=== PATIENT | female | born 1960 | race Caucasian/White ===

== ENCOUNTER 2021-01-20 11:10 | Emergency (ER) | payer BC, SELFPAY ==
--- NOTE | ~2021-01-20 | XR_ITS ---
XR finger 2nd LT min 2V DATE: 01/20/2021 11:32 INDICATION: Cut finger with knife TECHNIQUE: 3 views COMPARISON: None FINDINGS: Soft tissue irregularity consistent with laceration is noted at the distal aspect of the se cond digit. No radiopaque soft tissue foreign body. No fracture or dislocation, periosteal reaction or bone destr uction. IMPRESSION: Distal soft tissue laceration; no radiopaque foreign body or fracture or dislocation Reviewed, dictated and finalized at location A. IMPRESSION: Distal soft tissue laceration; no radiopaque foreign body or fractu re or dislocation
[2021-01-20 11:16] VITALS: BP 150/85; PULSE 78; RESP 20; TEMP 36.6; O2SAT 99
--- NOTE | 2021-01-20 11:51 | ED.GENADULT ---
HPI - General Adult General Chief complaint: Extremity Injury, Upper Stated complaint: finger injury Time Seen by Provider: 01/20/21 11:18 Source: patient Mode of arrival: ambulatory Limitations: no limitations History of Present Illness HPI narrative: Patient presents for evaluation of injury to the left index finger. She states she was out in her garage when the wind blew the garage door shut. Her left index finger got smashed in the door. She has damage to nail plate and reports mild pain in affected area, described as throbbing. She has some numbness in left index finger. She is right hand dominant. She is not diabetic. She does not smoke. Date of last tetanus unknown. Related Data Allergies Allergy/AdvReac Type Severity Reaction Status Date / Time Sulfa (Sulfonamide Allergy Intermediate Hives / Verified 01/20/21 11:21 Antibiotics) Red Face Review of Systems Review of Systems: Narrative: CONSTITUTIONAL: Denies fever, chills, or sweats. EYES: Denies visual changes, redness, or discharge. ENT: Denies rhinorrhea, congestion, sore throat, or otalgia. CARDIOVASCULAR: Denies chest pain, palpitations, or edema. RESPIRATORY: Denies cough or dyspnea. GASTROINTESTINAL: Denies abdominal pain, nausea, vomiting, or diarrhea. GENITOURINARY: Denies dysuria or hematuria. SKIN: Reports wound to left index finger. Reports damage to nailplate of left index finger. Denies rash or itching. MUSCULOSKELETAL: Reports pain in the left index finger. Denies back pain myalgia. NEUROLOGIC: Denies headache, numbness, dizziness, or weakness. PSYCHIATRIC: Denies anxiety or depression. [facility] Past Medical History Medical History (Updated 01/20/21 @ 13:12 by Justice Knox, MU, ) Chronic low back pain Chronic neck pain Surgical History Surgical History History of appendectomy History of cervical spinal surgery Family History Family History Mother No pertinent past medical history Social History Social History Substance use: never Living arrangements: with family Gender identity (if verbalized by the patient): Female Sexual Orientation (if Verbalized by the Patient): Straight or Heterosexual Spiritual care concerns: No Exam Narrative: Exam Narrative: GENERAL: Well-appearing, well-nourished, and in no acute distress. HEAD: Normocephalic, atraumatic. EYES: PERRLA and EOMI. ENT: Nares clear, no rhinorrhea or epistaxis. Mucous membranes moist. Oropharynx without tonsillar hypertrophy exudate or other lesions. Bilateral TMs pearly paige nonbulging NECK: Supple. No adenopathy or masses. No carotid bruits or JVD CHEST: Clear to auscultation. No respiratory distress. No wheezes rales or rhonchi HEART: Regular rate and rhythm. No murmur heard. Normal peripheral pulses. ABDOMEN: Soft, nontender, nondistended, normal active bowel sounds. EXTREMITIES: Normal range of motion. No edema. Tenderness noted to distal phalanx of 2nd digit of left hand SKIN: There is fissure to nailplate of left index finger in transverse formation at distal third of nailplate. There is a small amount of bleeding from site. There is a 3mm superficial linear abrasion noted to dorsal aspect of distal phalanx of 2nd digit of left hand in transverse formation. There is a 5mm superficial laceration to palmar aspect of distal phalanx of 2nd digit of left hand in transverse formation. There is a Warm, dry, no rash. NEURO: No focal deficits. Alert and oriented x3. PSYCH: Normal mood and affect. Course Course Emergency Course: This is a 60-year-old female who presented with injury to left index finger. X-ray was negative for fracture. She was updated on tetanus. 2 sutures were placed in the left index finger nail plate to hold in place until she can follow-up with hand surgeon.
[2021-01-20] MEDS: TETANUS,DIPHTHERIA,AC PERTUSSIS ADULT (0.5 ML) BOOSTRIX IM (12:13)
[2021-01-20 13:24] VITALS: BP 145/88; PULSE 75; RESP 18; TEMP 36.4; O2SAT 98
== END 2021-01-20 13:42 | disposition home or self-care (01) ==
PROVIDERS: Emergency Provider Nurse Practitioner
DX: S61.311A Laceration without foreign body of left index finger with damage to nail, initial encounter (principal); S60.122A Contusion of left index finger with damage to nail, initial encounter; Z23 Encounter for immunization; W23.0XXA Caught, crushed, jammed, or pinched between moving objects, initial encounter
CPT/HCPCS: 12001; 73140; 90471; 90715; 99283

== ENCOUNTER 2025-06-08 13:13 | Outpatient (CLI) | payer MEDICARE, SELFPAY ==
--- NOTE | 2025-06-08 | ECHO_ITS ---
Patient Info Name: Marita Morel (Beth) Age: 65 years : 1960 Gender: Female Ht: 66 in Wt: 234 lbs BSA: 2.27 m2 HR: 82 bpm BP: 172 / 118 mmHg Heart Rhythm: Sinus Rhythm Technical Quality: Fair Exam Date: 06/08/2025 1:59 PM Patient Status: O Admit Date: 06/08/2025 Exam Type: CA echo doppler color flow Complete two-dimensional, color flow and Doppler transthoracic echocardiogram is performed. Loom Doffer: Darien Samuel III Summary 1. Complete two-dimensional, color flow and Doppler transthoracic echocardiogram is performed. 2. Left ventricular chamber dimension is normal. 3. Left ventricular systolic function is normal, estimated at 65-70. 4. There is mildly increased left ventricular wall thickness. 5. The left ventricular diastolic function is grade I diastolic dysfunction. 6. Left atrial chamber dimension is mildly enlarged. 7. There is mild tricuspid valve regurgitation. Left Ventricle Left ventricular chamber dimension is normal. Left ventricular systolic function is normal, estimated at 65-70. There is mildly increased left ventricular wall thickness. The left ventricular diastolic function is grade I diastolic dysfunction. Right Ventricle Right ventricular chamber dimension is normal. Right ventricular systolic function is normal. Left Atria Left atrial chamber dimension is mildly enlarged. Right Atria Right atrial chamber dimension is normal. Atrial Septum Intact interatrial septum visualized by color flow imaging. Aortic Valve The aortic valve is probable trileaflet. There is mild aortic valve sclerosis. There is no aortic valve stenosis. There is trace aortic valve regurgitation. Pulmonic Valve The pulmonic valve is normal. There is no pulmonic valve stenosis. There is trace pulmonic regurgitation. Mitral Valve The mitral valve has thickened leaflets. There is no mitral valve stenosis. There is trace mitral valve regurgitation. Tricuspid Valve The tricuspid valve leaflets are normal. There is no significant tricuspid valve stenosis. There is mild tricuspid valve regurgitation. Pericardium/Pleural The pericardium appears normal. There is no pericardial effusion. Inferior Vena Cava Normal inferior vena cava with >50% collapse upon inspiration consistent with normal right atrial pressure, 5 mmHg. Aorta The aortic root size at the sinus of Valsalva is normal. Left Ventricular Outflow Tract Name Value Normal LVOT 2D LVOT Diameter 2.2 cm LVOT Doppler LVOT Peak Velocity 107 cm/s LVOT Peak Gradient 5 mmHg LVOT Mean Gradient 2 mmHg LVOT VTI 21 cm LVOT VTI/AV VTI Ratio 0.8 LVOT Stroke Volume 85 ml LVOT CO 15.0 l/min LVOT CI 6.6 l/min/m2 Pulmonic Valve Name Value Normal PV Doppler PV Peak Velocity 105 cm/s PV Peak Gradient 4 mmHg PV Mean Gradient 2 mmHg Mitral Valve Name Value Normal MV Doppler MV Peak Gradient 2 mmHg MV Mean Gradient 1 mmHg MV Area (Cont Eq VTI) 4.7 cm2 MV Diastolic Function MV E Peak Velocity 59 cm/s MV A Peak Velocity 77 cm/s MV E/A 0.8 MV Decel Time (PW) 237 ms MV Annular TDI MV E/e' (Septal) 8.0 MV E/e' (Lateral) 9.3 MV E/e' (Average) 8.7 Tricuspid Valve Name Value Normal Estimated PAP/RSVP RA Pressure 5 mmHg <=5 TV Annular TDI TV Lateral Daniela s' Velocity 17.9 cm/s >=9.5 Aortic Valve Name Value Normal AV Doppler AV Peak Velocity 145 cm/s AV Peak Gradient 8 mmHg AV Mean Gradient 4 mmHg AV VTI 26 cm AV Area (Cont Eq VTI) 3.2 cm2 >=3.0 AV Area (Cont Eq Valdemar) 2.9 cm2 AV DI (Valdemar) 0.74 AV Regurgitation 2D LVOT Area 4.0 cm2 Ventricles Name Value Normal LV Dimensions 2D/MM IVS Diastolic Thickness (2D) 1.1 cm 0.6-1.0 LVID Diastole (2D) 4.6 cm 3.8-5.2 LVIW Diastolic Thickness (2D) 1.0 cm 0.6-0.9 LVID Systole (2D) 2.7 cm 2.2-3.5 LVOT Diameter 2.2 cm LV Mass (2D Cubed) 169.29 g 67.00-162.00 LV Mass Index (2D Cubed) 75 g/m2 43-95 Relative Wall Thickness (2D) 0.44 <=0.42 LV Fractional Shortening/Ejection Fraction 2D/MM LV Fractional Shortening (2D) 41 % 27-45 LV EF (2D Teichholz) 72 % LV Diastolic Volume (4C MOD) 64 ml LV EF (4C MOD) 60 % LV Diastolic Volume (2C MOD) 66 ml LV EF (2C MOD) 58 % LV Diastolic Volume (BP MOD) 65 ml 46-106 LV Diastolic Volume Index (BP MOD) 29 ml/m2 29-61 LV Systolic Volume (BP MOD) 27 ml 14-42 LV Systolic Volume Index (BP MOD) 12 ml/m2 8-24 LV EF (BP MOD) 59 % 54-74 LV Diastolic Length (4C) 7.3 cm LV Systolic Length (4C) 5.8 cm LV Stroke Volume (4C MOD) 39 ml Atria Name Value Normal LA Dimensions LA Volume (4C A-L) 46 ml LA Volume (BP A-L) 58 ml RA Dimensions RA Systolic Major Le Claire Length (4C) 4.6 cm 2.2-2.8 RA Area (4C) 15.0 cm2 <=18.0 Report Signatures
== END 2025-06-08 13:14 | disposition home or self-care (01) ==
DX: Z01.810 Encounter for preprocedural cardiovascular examination (principal); R94.31 Abnormal electrocardiogram [ECG] [EKG]; I42.8 Other cardiomyopathies; I50.30 Unspecified diastolic (congestive) heart failure; I07.1 Rheumatic tricuspid insufficiency
CPT/HCPCS: 93306